=== PATIENT | female | born 1950 | race African-American/Black ===

== ENCOUNTER 2018-11-24 23:54 | Inpatient (IN) | payer MEDICARE ==
[~2018-11-24] VITALS: Ht 157.5 cm; Wt 69.9 kg
[2018-11-25] MEDS ORDERED: SODIUM CHLORIDE 0.9% 1000ML BAG (SEPSIS BOLUS) IV ONE (00:15)
[2018-11-25 00:38] LABS: BASOPHILS % 0.6 % (0.0-2.0); EOSINOPHILS % 0.6 % (0.0-5.0); HEMATOCRIT. 40.4 % (36.0-48.0); HEMOGLOBIN. 13.1 g/dL (12.0-16.0); LYMPHOCYTES % 10.6 % (20.0-50.0); MEAN CORPUSCULAR HEMOGLOBIN 30.8 pg (28.0-32.0); MEAN CORPUSCULAR VOLUME 94.7 fL (81.0-99.0); MEAN PLATELET VOLUME 10.5 fl (7.4-10.4); MONOCYTES % 5.7 % (2.0-8.0); NEUTROPHILS % 82.5 % (40.0-76.0); PLATELET 141 x1000/uL (130-400); RED BLOOD CELL COUNT 4.27 mill/uL (4.2-5.4)
[2018-11-25 00:47] LABS: PARTIAL THROMBOPLASTIN TIME 23.8 sec (23.4-31.0); PROTHROMBIN TIME 10.4 sec (9.6-11.0)
[2018-11-25 00:50] LABS: CHLORIDE 109 mEq/L (98-107)
[2018-11-25] MEDS ORDERED: AZITHROMYCIN 500 MG in DEXT 5% WATER 250 ML IV STA (01:04)
[2018-11-25] MEDS ORDERED: CEFTRIAXONE 1 G PREMIX 50 ML IV ONE (01:15)
[2018-11-25 02:12] LABS: CLARITY URINE CLEAR (CLEAR); COLOR URINE YELLOW (YELLOW); KETONES URINE NEGATIVE (NEGATIVE); LEUKOCYTE ESTERASE URINE 1+ (NEGATIVE); NITRITE URINE NEGATIVE (NEGATIVE); OCCULT BLOOD URINE NEGATIVE (NEGATIVE); PH URINE 6.5 (4.5-8.0); PROTEIN URINE NEGATIVE (NEGATIVE); SPECIFIC GRAVITY URINE 1.008 (1.005-1.030); UROBILINOGEN URINE 0.2 E.U./dL (0.2-1.0)
[2018-11-25] MEDS ORDERED: ONDANSETRON HCL 4MG/2ML INJ IV PRN (03:30)
[2018-11-25] MEDS ORDERED: GUAIFENESIN 200MG/10ML SUGAR FREE UDC PO PRN (03:30)
[2018-11-25] MEDS ORDERED: CEFTRIAXONE 1 G PREMIX 50 ML IV SCH (03:30)
[2018-11-25] MEDS ORDERED: CLONIDINE 0.1MG TABLET PO PRN (03:30)
[2018-11-25] MEDS ORDERED: ACETAMINOPHEN 325MG TABLET PO PRN (03:30)
[2018-11-25] MEDS ORDERED: DOCUSATE SODIUM 100MG CAPSULE PO PRN (03:30)
[2018-11-25] MEDS ORDERED: HYDROCODONE/ACETAMINOPHEN 5/325MG TABLET PO PRN (03:30)
[2018-11-25] MEDS ORDERED: LORAZEPAM 2MG/ML CPJ IV PRN (03:30)
[2018-11-25 09:40] VITALS: BP 157/96
[2018-11-25 10:00] VITALS: BP 157/93
[2018-11-25] MEDS ORDERED: SODIUM CHLORIDE 0.9% 1,000 ML IV SCH (10:15)
[2018-11-25 12:00] VITALS: BP_SYST 161; BP_SYST 163; BP_DIAS 94; BP_DIAS 97
[2018-11-25] MEDS: ASPIRIN 81MG EC TABLET PO SCH (13:16)
[2018-11-25] MEDS: ENOXAPARIN 30MG/0.3ML SYR SUBCUT SCH ×2 (13:17→21:59)
[2018-11-25 15:01] VITALS: BP 163/103
[2018-11-25 16:00] VITALS: BP 100/72
[2018-11-25 20:00] VITALS: BP 138/84
[2018-11-26] VITALS: BP 155/86
[2018-11-26] MEDS ORDERED: CEFTRIAXONE 1,000 MG in DEXTROSE 5% WATER 50 ML IV SCH (01:00)
[2018-11-26] MEDS ORDERED: AZITHROMYCIN 500 MG in DEXT 5% WATER 250 ML IV SCH (02:00)
[2018-11-26 04:00] VITALS: BP 121/89
[2018-11-26 07:44] LABS: BASOPHILS % 0.6 % (0.0-2.0); EOSINOPHILS % 1.5 % (0.0-5.0); HEMATOCRIT. 38.4 % (36.0-48.0); HEMOGLOBIN. 12.4 g/dL (12.0-16.0); MEAN CORPUSCULAR HEMOGLOBIN 30.8 pg (28.0-32.0); MEAN CORPUSCULAR VOLUME 95.1 fL (81.0-99.0); MEAN PLATELET VOLUME 10.7 fl (7.4-10.4); MONOCYTES % 10.5 % (2.0-8.0); NEUTROPHILS % 63.4 % (40.0-76.0); PLATELET 112 x1000/uL (130-400); RED BLOOD CELL COUNT 4.04 mill/uL (4.2-5.4); RED CELL DISTRIBUTION WIDTH 13.9 % (11.6-14.6)
[2018-11-26 08:00] VITALS: BP 133/87
[2018-11-26 08:18] LABS: CHLORIDE 112 mEq/L (98-107)
[2018-11-26 08:33] LABS: HDL CHOLESTEROL 64 mg/dL (40-59); LDL CHOLESTEROL 111 mg/dL (5-100)
[2018-11-26 08:35] LABS: T4 FREE 1.14 ng/dL (0.76-1.46)
[2018-11-26] MEDS: ASPIRIN 81MG EC TABLET PO SCH (10:16)
[2018-11-26] MEDS: ENOXAPARIN 30MG/0.3ML SYR SUBCUT SCH (10:16)
[2018-11-26 12:00] VITALS: BP 145/93
[2018-11-26 16:00] VITALS: BP 135/82
[2018-11-26 16:55] VITALS: BP 135/82
[2018-11-26] MEDS ORDERED: ATORVASTATIN CALCIUM 10MG TABLET PO SCH (21:00)
[2018-11-27] MEDS ORDERED: ENOXAPARIN 40MG/0.4ML SYR SUBCUT SCH (09:00)
== END 2018-11-26 19:20 | disposition home or self-care (01) | DRG 195 ==
LOC: EDBD 23:54 → ER 23:54 → 6WST 11-25 01:54 → EDBEDREQ 11-25 02:13 → EDBEDREQTM 11-25 02:13 → ENRESERV 11-25 07:08
PROVIDERS: ADMIT Hospitalist; ATTEND Hospitalist
DX: J18.9 Pneumonia, unspecified organism (principal); I10 Essential (primary) hypertension; G40.909 Epilepsy, unspecified, not intractable, without status epilepticus; I95.9 Hypotension, unspecified
CPT/HCPCS: 36415; 71045; 71250; 80061; 81003; 82550; 83605; 84145; 84439; 84443; 84484; 93005; 93970; 96365; 99291; J0456; J0696; J1650; J7030; J7060